=== PATIENT | female | born 1940 | race Two or more races ===

== ENCOUNTER 2025-08-03 11:03 | Outpatient (OUT) | payer MEDICARE, SELFPAY ==
--- OUTSIDE RECORDS SUMMARY | 2025-07-20 22:18 | XMS_ITS | Continuity of Care Document ---
Author Organization [facility] Address [address] [place] [address] Phone Care Team Providers Care Awning Frame Maker Name Role Phone Radha Sanchez MD Emergency Provider Reji Arce MD Primary Care Provider Care Teams Patient Care Team Team Status: Active Member Role Status Linda Acre MD Primary Care Provider Active Visit Care Team Team Status: Inactive Member Role Status Linda Sanchez MD Emergency Provider Active Start: May 23, 2025 End: May 23, 2025 Reji Arce MD Primary Care Provider Active St art: May 23, 2025 End: May 23, 2025 Patient Care Team Team Status: Inactive Member Role Status Linda Arce MD Primary Care Provider Active St art: July 20, 2025 End: 2025 Radha Sanchez MD Emergency Provider Active Start: July 20, 2025 End: 2025 Chief Complaint and Reason for Visit Chief Complaint Admit Date middle back pain, face redness April 6:38am High BP July 20, 2025 8:41pm Allergies, Adverse Reactions, Alerts Allergen Type Severity Reaction Last Updated Verified Status No Known Allergies Allergy Unknown Sept2024 8:48pm Yes Active Social History Smoking Status Status Start Date End Date Date of Observa tion Never smoked tobacco (finding) July 20, 2025 8:46pm Observation Status Observation Response Date of Response Legal Sex Female (finding) Sex Assigned At Female 1940 Family History Relationship Condition Age at Onset Recorded Date/T josseline father Unknown mother Unknown Problems Active Problems Medical Problem Onset Date Status Comments 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 Unknown Acti ve Hyponatremia Unknown Active 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 Essential hypertension Unknown Active Asymptomatic hypertension Unknown Active Hypertension Unknown Active Hypertension Unknown Active Inactive/Resolved Problems Medical Problem Onset Date Status Comments Hypertensive urgency Unknown Resolved Viral illness Unknown Resolved Asymptomatic hypertension Unknown Resolved Tinnitus Unknown Resolved left ear Medications Medication Status Dose Units Route Directions Qty Days St art Date Stop Date End Date Instructions Adherence Lorazepam (Ativan) 1 mg tablet Discont inued 0.5 MG PO Daily as needed for Anxiety April 06, 2020 12:00a m Augus t 2023 10:58 am Atenolol (Tenormin) 50 mg Tablet Discont inued 50 MG PO Daily April 06, 2020 12:00a m Octob er 2023 2:06p m Modafinil (Provigil) 100 mg Tablet Discont inued 200 MG PO DAILY@1200 April 06, 2020 12:00a m Septe mber 2023 1:14p m Valsartan 80 mg Tablet Discont inued 40 MG PO Bedtime April 14, 2020 12:00a m Augus t 2023 11:03 am Triamterene -Hydrochlor othiazid 37.5-25 mg capsule Discont inued 1 CAP PO Daily as needed for edema March 22, 2024 12:00a m March 22, 2024 4:51p m Triamterene -Hydrochlor othiazid 37.5-25 mg Tablet Discont inued 1 TAB PO Daily 30 March 22, 2024 12:00a m Augus t 2023 4:49p m Lorazepam 0.5 mg tablet Active 0.5 MG PO February 22, 2025 12:00a m Unknown Hydrochloro thiazide 12.5 mg capsule Active 12.5 MG PO Daily February 22, 2025 12:00a m Unknown Ondansetron Hcl 4 mg tablet Active 4 MG PO Every 8 hours as needed for nausea and vomiting 6 2 May 23, 2025 9:28am Unknown Nitroglycer in 0.4 mg tablet, sublingual Active 0.4 MG SUBLIN GUAL Q5M as needed for chest pain June 10, 2024 12:00a m Unknown Modafinil 200 mg tablet Discont inued 100 MG PO Daily June 10, 2024 12:00a m Augus t 2023 10:23 am Atenolol 100 mg tablet Active 100 MG PO Daily 30 30 Octobe r 2023 12:00a m Unknown Valsartan 80 mg tablet Active 80 MG PO Daily 90 90 June 20, 2024 12:00a m Unknown Procedures Procedure Date Performed Status XR chest 2V* May 23, 2025 6:51am completed CT angio abdomen pelvis May 23, 2025 7:35am c ompleted CT angio chest May 23, 2025 7:35am completed XR chest 2V* July 20, 2025 8:50pm comp leted Relevant Diagnostic Tests and/or Laboratory Data Laboratory Results Test Collection Date/Time Result Date/Time Result Interpretation Reference Range Result Comment Performing Site Correcte d White Blood Count May 23, 2025 6:52am May 23, 2025 7:02am 6.5 10*3/uL 3.8-11.6 [facility] [id number] [address] [place] [address] 32401 Correcte d White Blood Count July 20, 2025 8:50pm July 20, 2025 9:02pm 6.3 10*3/uL 3.8-11.6 [facility] [id number] [address] [place] [address] 23619 Uncorrec beth WBC Count May 23, 2025 6:52am May 23, 2025 7:02am 6.5 10*3/uL 3.8-11.6 [facility] [id number] [address] [place] [address] 08806 Uncorrec beth WBC Count July 20, 2025 8:50pm July 20, 2025 9:02pm 6.3 10*3/uL 3.8-11.6 [facility] [id number] [address] [place], [place] [address] Red Blood Count May 23, 2025 6:52am May 23, 2025 7:02am 4.58 10*6/uL 3.60-5.00 [facility] [id number] [address] [place], [place] [address] Red Blood Count July 20, 2025 8:50pm July 20, 2025 9:02pm 4.53 10*6/uL 3.60-5.00 [facility] [id number] [address] [facility] [address] Hemoglob in May 23, 2025 6:52am May 23, 2025 7:02am 14.0 g/dL 11.8-15.4 [facility] [id number] [address] [facility] [address] Hemoglob in July 20, 2025 8:50pm July 20, 2025 9:02pm 13.7 g/dL 11.8-15.4 [facility] [id number] [address] [facility] 43681 Hematocr it May 23, 2025 6:52am May 23, 2025 7:02am 41.9 % 34.0-46.4 [facility] [id number] [address] [facility] [address]809 Hematocr it July 20, 2025 8:50pm July 20, 2025 9:02pm 40.7 % 34.0-46.4 [facility] [id number] [address] [facility] [address] Mean Corpuscu lar Volume May 23, 2025 6:52am May 23, 2025 7:02am 91.4 fL 80-100 [facility] [id number] [address] [place] [address] 64570 Mean Corpuscu lar Volume July 20, 2025 8:50pm July 20, 2025 9:02pm 89.9 fL 80-100 [facility] [id number] [address] [place] [address] 65541 Mean Corpuscu lar Hemoglob in May 23, 2025 6:52am May 23, 2025 7:02am 30.5 pg 24.7-34.3 [facility] [id number] [address] [place] [address] 72099 Mean Corpuscu lar Hemoglob in July 20, 2025 8:50pm July 20, 2025 9:02pm 30.2 pg 24.7-34.3 [facility] [id number] [address] [place] [address] 10358 Mean Corpuscu lar Hemoglob in [facility] May 23, 2025 6:52am May 23, 2025 7:02am 33.4 g/dL 32.0-35.0 [facility] [id number] [address] [facility] [address] Mean Corpuscu lar Hemoglob in [facility] July 20, 2025 8:50pm July 20, 2025 9:02pm 33.6 g/dL 32.0-35.0 [facility] [id number] [address] [place] [address] 26124 Red Cell Distribu tion Width May 23, 2025 6:52am May 23, 2025 7:02am 14.2 % 11.9-15.3 [facility] [id number] [address] [place] [address] 42436 Red Cell Distribu tion Width July 20, 2025 8:50pm July 20, 2025 9:02pm 14.7 % 11.9-15.3 [facility] [id number] [address] [place] [address] 16708 Platelet Count May 23, 2025 6:52am May 23, 2025 7:02am 266 10*3/uL 150-450 [facility] [id number] [address] [place] [address] 00885 Platelet Count July 20, 2025 8:50pm July 20, 2025 9:02pm 206 10*3/uL 150-450 [facility] [id number] [address] [place] [address] 93684 Mean Platelet Volume May 23, 2025 6:52am May 23, 2025 7:02am 8.7 fL 6.3-10.7 [facility] [id number] [address] [place] [address] 82549 Mean Platelet Volume July 20, 2025 8:50pm July 20, 2025 9:02pm 9.1 fL 6.3-10.7 [facility] [id number] [address] [place] [address] 60546 Monocyte Distribu tion Width May 23, 2025 6:52am May 23, 2025 7:02am 18.97 % 0.00-20.00 [facility] [id number] [address] [facility] [address] Monocyte Distribu tion Width July 20, 2025 8:50pm July 20, 2025 9:02pm 17.43 % 0.00-20.00 [facility] [id number] [address] [facility] [address]182 Neutroph ils (%) (Auto) May 23, 2025 6:52am May 23, 2025 7:02am 49.9 % . [facility] [id number] [address] [facility] [address] Neutroph ils (%) (Auto) July 20, 2025 8:50pm July 20, 2025 9:02pm 51.0 % . [facility] [id number] [address] [facility] [address] Lymphocy jourdan (%) (Auto) May 23, 2025 6:52am May 23, 2025 7:02am 31.4 % . [facility] [id number] [address] [facility] [address] Lymphocy jourdan (%) (Auto) July 20, 2025 8:50pm July 20, 2025 9:02pm 31.1 % . [facility] [id number] [address] [facility] [address] Monocyte s (%) (Auto) May 23, 2025 6:52am May 23, 2025 7:02am 11.3 % . [facility] [id number] [address] [facility] [address] Monocyte s (%) (Auto) July 20, 2025 8:50pm July 20, 2025 9:02pm 12.3 % . [facility] [id number] [address] [facility] [address] Eosinoph ils (%) (Auto) May 23, 2025 6:52am May 23, 2025 7:02am 6.2 % . [facility] [id number] [address] [facility] [address] Eosinoph ils (%) (Auto) July 20, 2025 8:50pm July 20, 2025 9:02pm 4.5 % . [facility] [id number] [address] [facility] [address] Basophil s (%) (Auto) May 23, 2025 6:52am May 23, 2025 7:02am 1.2 % . [facility] [id number] [address] [facility] [address] Basophil s (%) (Auto) July 20, 2025 8:50pm July 20, 2025 9:02pm 1.1 % . [facility] [id number] [address] [facility] 16269 Nucleate d RBC Relative Count (auto) May 23, 2025 6:52am May 23, 2025 7:02am 0.1 /100{WBC} 0-0.5 [facility] [id number] [address] [facility] 26783 Nucleate d RBC Relative Count (auto) July 20, 2025 8:50pm July 20, 2025 9:02pm 0.0 /100{WBC} 0-0.5 [facility] [id number] [address] [facility] [address]709 Neutroph ils # (Auto) May 23, 2025 6:52am May 23, 2025 7:02am 3.2 10*3/uL 1.8-7.7 [facility] [id number] [address] [facility] [address] Neutroph ils # (Auto) July 20, 2025 8:50pm July 20, 2025 9:02pm 3.2 10*3/uL 1.8-7.7 [facility] [id number] [address] [facility] [address]696 Lymphocy jourdan # (Auto) May 23, 2025 6:52am May 23, 2025 7:02am 2.0 10*3/uL 1.00-4.8 [facility] [id number] [address] [facility] [address]647 Lymphocy jourdan # (Auto) July 20, 2025 8:50pm July 20, 2025 9:02pm 2.0 10*3/uL 1.00-4.8 [facility] [id number] [address] [facility] 75372 Monocyte s # (Auto) May 23, 2025 6:52am May 23, 2025 7:02am 0.7 10*3/uL 0.0-0.8 [facility] [id number] [address] [facility] [address] Monocyte s # (Auto) July 20, 2025 8:50pm July 20, 2025 9:02pm 0.8 10*3/uL 0.0-0.8 [facility] [id number] [address] [place] [address] 43145 Eosinoph ils # (Auto) May 23, 2025 6:52am May 23, 2025 7:02am 0.4 10*3/uL 0.0-0.45 [facility] [id number] [address] [place] [address] 95052 Eosinoph ils # (Auto) July 20, 2025 8:50pm July 20, 2025 9:02pm 0.3 10*3/uL 0.0-0.45 [facility] [id number] [address] [place] [address] 81234 Basophil s # (Auto) May 23, 2025 6:52am May 23, 2025 7:02am 0.1 10*3/uL 0.0-0.2 [facility] [id number] [address] [place] [address] 77165 Basophil s # (Auto) July 20, 2025 8:50pm July 20, 2025 9:02pm 0.1 10*3/uL 0.0-0.2 [facility] [id number] [address] [place] [address] 81071 Prothrom bin Time July 20, 2025 8:50pm July 20, 2025 9:29pm 10.4 s 9.0-12.9 A hematocrit value greater than 55% may lead to inaccurate results in coagulation testing. Patients having hematocrit values >55% require a special collection tube for coagulation studies. Please contact the laboratory at [phone] for redraw instruction s. [facility] [id number] [address] [place] [address] 57135 Prothrom b Time Internat ional Ratio July 20, 2025 8:50pm July 20, 2025 9:29pm 0.9 INR Therapeutic Range A) Pre- and Peroperativ e OAT started two weeks before surgery. NOT HIP SURGERY: 1.5 - 2.5 HIP SURGERY: 2 - 3B) Primary and secondary prevention of venous THROMBOSIS: 2 - 3C) Active venous thrombosis, pulmonary embolismand prevention of recurrent venous thrombosis: 2 - 3D) Prevention of arterial thromboembo lismincludi ng patients with mechanical heart valves: 3 - 4.5 [facility] [id number] [address] [facility] [address] D-Dimer Quantita tive (PE/DVT) May 23, 2025 6:52am May 23, 2025 7:28am 267 ng/mL Above high normal 0-243 The reference range for D-dimer is <243 ng/mL D-dimer units.D-dim er results must be used in conjunction with a clinicalpre test probability (PTP) assessment model for deep veinthrombo sis (DVT) and pulmonary embolism (PE). Results <230ng/mL d-dimer units can be used as a negative predictor inpatients with low or moderate probability for DVT/PE.Resu lts above the exclusion threshold of 230 ng/ml D-dimerunit s for DVT/PE may indicate the need for furtherdiag nostic testing.D-D karen can be increased in hospitalize d patients due toco-morbid conditions. A hematocrit value greater than 55% may lead to inaccurate results in coagulation testing. Patients having hematocrit values >55% require a special collection tube for coagulation studies. Please contact the laboratory at for redraw instruction s. [facility] [id number] [address] [facility] [address] Urine Color May 23, 2025 7:50am May 23, 2025 8:13am Yellow Yellow [facility] [id number] [address] [place] [address] 33690 Urine Appearan ce May 23, 2025 7:50am May 23, 2025 8:13am Clear Clear [facility] [id number] [address] [place] [address] 51277 Urine Specific [place] May 23, 2025 7:50am May 23, 2025 8:13am 1.015 1.001-1.03 0 [facility] [id number] [address] [facility] 39655 Urine pH May 23, 2025 7:50am May 23, 2025 8:13am 6.5 5.0-9.0 [facility] [id number] [address] [facility] 26649 Urine Leukocyt e Esterase May 23, 2025 7:50am May 23, 2025 8:13am Negative Negative [facility] [id number] [address] [facility] 05551 Urine Nitrite May 23, 2025 7:50am May 23, 2025 8:13am Negative Negative [facility] [id number] [address] [facility] 29085 Urine Protein May 23, 2025 7:50am May 23, 2025 8:13am Negative mg/dL Negative [facility] [id number] [address] [place] [address] 09500 Urine Glucose (UA) May 23, 2025 7:50am May 23, 2025 8:13am Normal mg/dL Normal [facility] [id number] [address] [place] [address] 58907 Urine Ketones May 23, 2025 7:50am May 23, 2025 8:13am Negative Negative [facility] [id number] [address] [place] [address] 82558 Urine Urobilin ogen May 23, 2025 7:50am May 23, 2025 8:13am Normal mg/dL Normal [facility] [id number] [address] [place] [address] 35293 Urine Bilirubi n May 23, 2025 7:50am May 23, 2025 8:13am Negative Negative [facility] [id number] [address] [place] [address] 28631 Urine Occult Blood May 23, 2025 7:50am May 23, 2025 8:13am Negative Negative [facility] [id number] [address] [place] [address] 69990 Glucose Level May 23, 2025 6:52am May 23, 2025 7:21am 135 mg/dL Above high normal 70-100 ADA recommended reference rangeRandom Glucose Reference Range is dependent on time and content of last meal. Glucose of more than 200 mg/dL in a nonstressed , ambulatory subject supports the diagnosis of Diabetes Mellitus. [facility] [id number] [address] [place] [id number] Glucose Level July 20, 2025 8:50pm July 20, 2025 9:23pm 116 mg/dL Above high normal 70-100 ADA recommended reference rangeRandom Glucose Reference Range is dependent on time and content of last meal. Glucose of more than 200 mg/dL in a nonstressed , ambulatory subject supports the diagnosis of Diabetes Mellitus. [facility] [id number] [address] [place] [id number] Blood Urea Nitrogen May 23, 2025 6:52am May 23, 2025 7:21am 15 mg/dL 05-22 [facility] [id number] [address] [place] [id number] Blood Urea Nitrogen July 20, 2025 8:50pm July 20, 2025 9:23pm 16 mg/dL 05-22 [facility] [id number] [address] [place] [address] 55537 Creatini ne May 23, 2025 6:52am May 23, 2025 7:21am 0.81 mg/dL 0.60-1.20 [facility] [id number] [address] [place] [address] 66167 Creatini ne July 20, 2025 8:50pm July 20, 2025 9:23pm 0.76 mg/dL 0.60-1.20 [facility] [id number] [address] [place], [place] [address] Estimate d GFR (CKD-EPI ) May 23, 2025 6:52am May 23, 2025 7:21am > 60.0 mL/Min [facility] [id number] [address] [place], [place] [address] Estimate d GFR (CKD-EPI ) July 20, 2025 8:50pm July 20, 2025 9:23pm > 60.0 mL/Min [facility] [id number] [address] [place], [place] [address] Sodium Level May 23, 2025 6:52am May 23, 2025 7:21am 134 mmol/L Below low normal 136-145 [facility] [id number] [address] [place], [place] [address] Sodium Level July 20, 2025 8:50pm July 20, 2025 9:23pm 138 mmol/L 136-145 [facility] [id number] [address] [facility] [address]288 Potassiu m Level May 23, 2025 6:52am May 23, 2025 7:21am 4.4 mmol/L 3.5-5.1 [facility] [id number] [address] [facility] [address] Potassiu m Level July 20, 2025 8:50pm July 20, 2025 9:23pm 4.3 mmol/L 3.5-5.1 [facility] [id number] [address] [facility] [address]883 Chloride Level May 23, 2025 6:52am May 23, 2025 7:21am 101 mmol/L 98-107 [facility] [id number] [address] [facility] [address]209 Chloride Level July 20, 2025 8:50pm July 20, 2025 9:23pm 105 mmol/L 98-107 [facility] [id number] [address] [facility] [address]69 Carbon Dioxide Level May 23, 2025 6:52am May 23, 2025 7:21am 28.2 mmol/L 21.0-31.0 [facility] [id number] [address] [facility] 86289 Carbon Dioxide Level July 20, 2025 8:50pm July 20, 2025 9:23pm 27.6 mmol/L 21.0-31.0 [facility] [id number] [address] [facility] 7[address]39 Anion Gap May 23, 2025 6:52am May 23, 2025 7:21am 9.2 mEq/L 6.0-15.0 [facility] [id number] [address] [facility] 26738 Anion Gap July 20, 2025 8:50pm July 20, 2025 9:23pm 9.7 mEq/L 6.0-15.0 [facility] [id number] [address] [facility] [address]60 Calcium Level May 23, 2025 6:52am May 23, 2025 7:21am 9.1 mg/dL 8.6-10.3 [facility] [id number] [address] [place] [address] 79612 Calcium Level July 20, 2025 8:50pm July 20, 2025 9:23pm 9.0 mg/dL 8.6-10.3 [facility] [id number] [address] [place] [address] 29315 Magnesiu m Level May 23, 2025 6:52am May 23, 2025 7:21am 2.1 mg/dL 1.9-2.7 [facility] [id number] [address] [place] [address] 34743 Troponin I High Sensitiv ity May 23, 2025 8:25am May 23, 2025 9:24am 7 ng/L 0-15 The Troponin units of report have been changed to meet the Chest Pain Accreditati on requirement , element EC5.M1l2. Troponin units are changed from pg/ml to ng/L. Also, the decimal is removed and results are in whole numbers. [facility] [id number] [address] [place] [address] 66143 Troponin I High Sensitiv ity 2025 12:42am 2025 1:18am 9 ng/L 0-15 The Troponin units of report have been changed to meet the Chest Pain Accreditati on requirement , element EC5.M1l2. Troponin units are changed from pg/ml to ng/L. Also, the decimal is removed and results are in whole numbers. [facility] [id number] [address] [place] [address] 35166 B-Type Natriure tic Peptide July 20, 2025 8:50pm July 20, 2025 9:26pm 74.0 pg/mL 5-100 [facility] [id number] [address] [place], [place] [address] Pharmacy Creatini ne Clearanc e (Chem May 23, 2025 6:52am May 23, 2025 7:21am 70.52 [facility] [id number] [address] [place], [place] [address] Pharmacy Creatini ne Clearanc e (Chem July 20, 2025 8:50pm July 20, 2025 9:23pm 71.40 [facility] [id number] [address] [place], [place] [address] Diagnostic Imaging Reports Author Portillo Smith [facility] Report Date/Time July 20, 2025 9:45pm [facility] [place] [id number] XRay Report Signed Patient: Sona White MR#: [id number] : 1940 Acct:[id number] Age/Sex: 84 / F ADM Date: 5 Loc: ER Room: Type: PRE ER Attending Dr: Copies to: JUSTIN PROVIDER~ Ordering Provider: SE ANDERSON Date of Service: 07/20/25 XR/XR chest 2V*: Chest Pain PA AND LATERAL CHEST: CLINICAL HISTORY: Elevated blood pressure COMPARISON: 05/23/2025 FINDINGS: Unremarkable cardiomediastinal. Lungs clear. No effusion or pneumothorax. Degenerative changes thoracic spine. XR/XR chest 2V* IMPRESSION: NO ACUTE CARDIOPULMONARY ABNORMALITY. Impression dictated by: Portillo Smith M.D. 07/20/2025 9:45 PM Dictation Location: [place] [address] Transcribed By: [facility] 07/20/252144 Dictated By: Portillo Smith MD 07/20/252141 Signed By: <Electronically signed by Portillo Smith MD in [place]> 07/20/252144 Vital Signs Vital Reading Result Reference Range Collection Date/Time Height 66.5 [in_i] May 23, 2025 6:43am Weight 119.60 kg May 23, 2025 6:43am Body Temperature 98.2 [degF] 97.6-99.0 May 23, 2025 6:43am Heart Rate 68 /min 60-100 May 23, 2025 9:00am Respiratory rate 18 /min 12-May 23, 2025 9:00am Oxygen saturation by Pulse oximetry 99 % 95-100 May 23, 2025 9:00 am BP Systolic 190 mm[Hg] 100-140 May 23, 2025 9:00am BP Diastolic 81 mm[Hg] 60-100 May 23, 2025 9:00am Height 66 [in_i] July 20, 2025 8:49pm Weight 119.60 kg July 20, 2025 8:49pm Body Temperature 98.7 [degF] 97.6-99.0 June 302024 8:48pm Heart Rate 79 /min 60-100 2025 2:10am Respiratory rate 20 /min 12-24 June 302024 12:51am Oxygen saturation by Pulse oximetry 100 % 95-100 2025 2:10am BP Systolic 145 mm[Hg] 100-140 2025 2:10am BP Diastolic 67 mm[Hg] 60-100 2025 2:10am Advance Directives Advance Directive Response Recorded Date/ Time Advance Directives No August 25, 2017 5:17pm Insurance Providers Guarantor Sona White [address] [facility] [address] Contact Info. Home Phone: Payer Policy Id Subscriber's Name Subscriber Id Effectiv e Date Expiration Date Medicare [id number] Sona White [id number] Encounters Encounter Location(s) Arrival/Admit Date Discharge/Depart Date Provider(s) Departed Emergency -Emergency Room May 23, 2025 6:38am May 23, 2025 9:46am Departed Emergency -Emergency Room July 20, 2025 8:41pm 2025 2:10am Plan of Treatment Future Tests Future scheduled test information is unavailable Pending Tests Pending diagnostic test information is unavailable Future Visits Future appointment information is unavailable Referrals to Other Providers Reason for Referral Referral Start Date Provider Provider Contact Information Provider Address Te Boyd DO Email: [email or web address] Phone: [address] [facility] [address] Reji Arce MD Work Phone: [address] [facility] [address] Future Procedures Future procedure information is unavailable Future Medications Future medication information is unavailable Patient Instructions Instruction Admit Date Low-sodium diet May 23, 2025 6:38 am Low-sodium diet High blood pressure - ED discharge instructions July 20, 2025 8:41pm Hospital Discharge Instructions Additional Instructions Please return to emergency department for any new or worrisome symptoms including any chest pain, blurry vision, shortness of breath, confusion, not acting like yourself. Stick to a low-salt diet until you follow-up closely with your family physician. Continue checking your blood pressure twice per day if able to at home and take the trends with you over the next 3 to 5 days to your appointment with your family physician.
--- NOTE | 2025-08-03 | XR_ITS ---
[place] [id number] Patient Name: KALINA ANNE MRN: [id number] date: 1940 Sex: F Assigned Patient Location: [facility] Current Patient Location: [facility] Accession/Order Number: [id number] Exam Date: 08/03/2025 11:25 Report Date: 08/03/2025 12:02 At the request of: JUVENAL IYER DO Procedure: XR knee EVELYN 4V Bilateral knee series 4 views each Reason for exam: Chronic bilateral knee pain. COMPARISON: None. FINDINGS: Moderate degenerative changes of both knees with medial weightbearing joint space narrowing. No acute bony process. Small joint effusions. XR/XR knee EVELYN 4V IMPRESSION: Moderate degenerative changes of the knees without acute bony process. Impression dictated by: Jonathan Zee Jr., D.ORandell 08/03/2025 12:02 PM Dictation Location: [place] [address] Electronically authenticated by: [id number] Y Date: 08/03/2025 12:02
--- OUTSIDE RECORDS SUMMARY | 2025-08-03 11:05 | XMS_ITS | Patient Health Record ---
Author Organization [facility] Address Formerly [facility] [place] [address] Care Team Providers Care Film Tests Checker Name Role Phone Mayur Hanks Unavailable [phone] Reason For Referral No Information Medications Medication SIG (Take, Route, Frequency, Duration) Notes Start Date End Date Status Multivitamin Adults 50+ - as directed Orally Active Vitamin K 100 MCG 1 tablet Orally Once a day; Duration: 30 day(s) Active Vitamin D3 10 MCG (400 UNIT) 1 tablet Orally Once a day; Duration: 30 day(s) Active Atenolol 25 MG 1 tablet Orally Once a day; Duration: 30 day(s) Active Immunizations Vaccine Route Administration Date Status Comme nts Influenza Unknown 09/16/2019 Administered Pneumococcal Unknown 09/16/2019 Administered Social History Tobacco Use: Social History Observation Description Date Details (start date - stop date) Never Smoker NA - NA tobacco use Question Answer Notes Patient is a: non smoker Problems Problem Type SNOMED Code ICD Code Onset Dates Problem Status W/U Status Risk Notes Problem Pain in right foot (66823534247859 7) Pain in right foot (M79.671) Active confirmed Problem Pain in left foot (48407686848569 7) Pain in left foot (M79.672) Active confirmed Problem Congenital pes planus of right foot (49756786641835 102) Congenital pes planus, 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 confirmed Problem Congenital pes planus of left foot (98314785046231 103) Congenital pes planus, left foot (Q66.52) Active confirmed Problem Tinea unguium (393551649) Tinea unguium (B35.1) Active confirmed Plan Of Treatment No Information Insurance Providers Payer Name Payer Address Payer Phone Subscriber Number Group Number Insured Name Patient Relationship to Insured Coverage Start Date Coverage End Date Medicare Part B [id number] Part [facility] [place] [address] [id number] Jennifer White Self - patient is the insured [facility] pay[employer]Mobile [facility] Options [address] [place] [address] [phone] [id number] Jennifer White Self - patient is the insured Medical (General) History Medical History History ICD Code hyertension skin cancer heart attack left ventrical balloon synd harper tinitus Surgical History Surgery Date(Month/Year)
== END 2025-08-03 11:04 | disposition home or self-care (01) ==
LOC: RAD 11:03
PROVIDERS: PCP Internal Medicine; Visit Provider Orthopaedic Surgery Orthopaedic Trauma
DX: M17.0 Bilateral primary osteoarthritis of knee (principal)
CPT/HCPCS: 73564